=== PATIENT | female | born 1990 | race Caucasian/White ===

== ENCOUNTER 2019-02-10 11:33 | Emergency (ER) | payer OTHER ==
[~2019-02-10] VITALS: Ht 167.6 cm; Wt 65.9 kg
[2019-02-10] MEDS ORDERED: FLUORESCEIN SODIUM 1 MG STRIP OD ONE (14:00)
[2019-02-10] MEDS ORDERED: PROPARACAINE HCL 0.5% 15 ML OPHTHALMIC SOLUTION OU ONE (14:00)
[2019-02-10] MEDS ORDERED: FLUORESCEIN SODIUM 1 MG STRIP OS ONE (14:00)
[2019-02-10] MEDS ORDERED: FLUORESCEIN SODIUM 1 MG STRIP ONE (14:01)
[2019-02-10] MEDS ORDERED: PHEN64.82 PO (14:39)
[2019-02-10] MEDS ORDERED: CLON2 PO (14:39)
[2019-02-10] MEDS ORDERED: ClonazePAM 1 MG TABLET PO ONE (15:00)
[2019-02-10] MEDS ORDERED: ERYTHROMYCIN 0.5% 3.5 GM TUBE OPHTHALMIC OINTMENT OS ONE (15:15)
[2019-02-10 16:00] VITALS: BP 126/82
== END 2019-02-10 16:27 | disposition home or self-care (01) ==
LOC: EMS 11:36
DX: S05.02XA Injury of conjunctiva and corneal abrasion without foreign body, left eye, initial encounter (principal); F17.210 Nicotine dependence, cigarettes, uncomplicated; F14.90 Cocaine use, unspecified, uncomplicated; F11.90 Opioid use, unspecified, uncomplicated; Z59.0 Homelessness; Z90.49 Acquired absence of other specified parts of digestive tract; X58.XXXA Exposure to other specified factors, initial encounter; Y93.89 Activity, other specified; Y92.89 Other specified places as the place of occurrence of the external cause; Y99.8 Other external cause status

== ENCOUNTER 2019-06-12 14:03 | Emergency (ER) | payer OTHER ==
[~2019-06-12] VITALS: Ht 165.1 cm; Wt 72.7 kg
[~2019-06-12 14:03] MED LIST: CLON2 PO; PHEN64.82 PO
[2019-06-12] MEDS ORDERED: METH10SO PO (14:20)
[2019-06-12] MEDS ORDERED: NALOXONE HCL 1 MG/ML 2 ML SYG IVP ONE (15:00)
[2019-06-12 16:42] VITALS: BP 100/66
== END 2019-06-12 17:00 | disposition left against medical advice (07) ==
LOC: EMS 14:04
DX: T40.3X1A Poisoning by methadone, accidental (unintentional), initial encounter (principal); F17.210 Nicotine dependence, cigarettes, uncomplicated; F11.10 Opioid abuse, uncomplicated; F15.90 Other stimulant use, unspecified, uncomplicated; Z79.899 Other long term (current) drug therapy; Z90.49 Acquired absence of other specified parts of digestive tract; Y92.89 Other specified places as the place of occurrence of the external cause
CPT/HCPCS: 71045; 93005; 96374; 99284; J2310